=== PATIENT | male | born 1990 | race Caucasian/White ===

== ENCOUNTER 2024-07-14 16:01 | Inpatient (IN) | payer BC, SELFPAY ==
[2024-07-14] VITALS (21 sets, daily range): BP systolic 105–146; BP diastolic 65–96; PULSE 71–115; RESP 30–34; TEMP 36.5–37.4; O2SAT 87–97; BMI 33.2; BMI 32.4
--- NOTE | 2024-07-14 16:25 | ED.GENADULT ---
HPI - General Adult General Time Seen by Provider: 16:25 Date Seen: 07/14/24 Chief complaint: Shortness of Breath/Dyspnea Stated complaint: shortness of breath Time Seen by Provider: 07/14/24 16:04 Source: patient and RN notes reviewed Mode of arrival: ambulatory Limitations: no limitations History of Present Illness HPI narrative: This 34-year-old male is coming in accompanied by a relative with concern of shortness of breath and respiratory illness. He started with cough cold symptoms with primarily sore throat and cough about 2 weeks ago. He has kids at home that were sick as well. His cough is continued, in the last couple days seems to be worsening. He is feeling short of breath. Can cough up yellow sputum. He denies any fevers or chills at this point to me but in his triaged he was noting 2 weeks of cough, fever, body aches, shortness of breath, sweating, elevated heart rate and chest discomfort from coughing. His sleep is disrupted. He was in [facility] prior to coming here, got a DuoNeb reportedly for wheezing, had a negative chest x-ray. He had a home COVID test which was negative about a week ago. He does not have any history of lung problems like asthma. Related Data Allergies Allergy/AdvReac Type Severity Reaction Status Date / Time Penicillins Allergy Verified 07/14/24 17:12 Review of Systems Status of ROS: Reports: 6 or more systems reviewed and unremarkable except as noted in History and below [facility] Medical History (Updated 07/14/24 @ 18:54 by Alex Davis MD) Obesity (BMI 30.0-34.9) ?E66.811 - Obesity, class 1 (ICD-10) Surgical History (Updated 07/14/24 @ 18:46 by Alex Davis MD) History of tonsillectomy and adenoidectomy ?Z90.89 - Acquired absence of other organs (ICD-10) Family History (Updated 07/14/24 @ 18:46 by Alex Davis MD) Grandmother Diabetes Social History (Updated 07/14/24 @ 18:51 by Alex Davis MD) Narrative: He lives with his parents in [place]. He has children that he sees every other weekend. He does not smoke. He does not vape. He rarely drinks alcohol. His mother is healthcare power of insurance defense attorney. Code status is full. 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 What is your current living situation?: I presently have a place to live Problems where you live: no known problems Problems where you live details: none In the past 12 months, utilities in danger of being shut off: no In past 12 months, lack of transportation kept you from medical appts, meetings, work, or getting things needed for daily living: no In the past 12 mos, have been you worried that your food would run out before you had money to buy more?: never true In the past 12 mos, the food you bought just didn't last and you didn't have money to buy more?: never true Highest level of school completed/degree received: Associate degree: occupational, technical, vocational program Smoking Status: Never smoker Do you use any of these nicotine containing products: None Second hand tobacco smoke exposure: No How often do you have a drink containing alcohol: never How often do you have six or more drinks on one occasion: Never AUDIT-C Alcohol total score: 0 Non-prescribed substance use: denies use Caffeine: Yes (soda-1 daily) How often does anyone, including family, friends and others, physically hurt you: never How often does anyone, including family, friends and others, insult or talk down to you: never How often does anyone, including family, friends and others, threaten you with harm: never How often does anyone, including family, friends and others, scream or curse at you: never service: No Exam Const: Vital Signs, click to edit/add: Vital Signs - 24 hr 07/14/24 16:10 07/14/24 16:14 07/14/24 16:15 Temperature Pulse Rate 115 H 104 H 103 H Pulse Rate [Pulse Oximeter] Respiratory Rate Blood Pressure 131/76 Blood Pressure [Ri ght Upper Arm] Pulse Oximetry 91 89 89 Oxygen Delivery Me thod Oxygen Flow Rate 07/14/24 16:16 07/14/24 16:30 07/14/24 16:32 Temperature 99.4 F Pulse Rate 100 102 H Pulse Rate [Pulse Oximeter] 105 H Respiratory Rate 30 H Blood Pressure 146/92 H Blood Pressure [Ri ght Upper Arm] 131/76 Pulse Oximetry 90 92 91 Oxygen Delivery Me thod Room Air Oxygen Flow Rate 07/14/24 16:45 07/14/24 17:00 07/14/24 17:02 Temperature Pulse Rate 91 99 93 Pulse Rate [Pulse Oximeter] Respiratory Rate Blood Pressure 122/74 Blood Pressure [Ri ght Upper Arm] Pulse Oximetry 90 87 L 88 Oxygen Delivery Me thod Oxygen Flow Rate 07/14/24 17:03 07/14/24 17:22 07/14/24 17:30 Temperature Pulse Rate 92 99 98 Pulse Rate [Pulse Oximeter] Respiratory Rate Blood Pressure Blood Pressure [Ri ght Upper Arm] Pulse Oximetry 90 92 89 Oxygen Delivery Me thod Nasal Cannula Nasal Cannula Nasal Cannula Oxygen Flow Rate 2 2 2 07/14/24 17:32 07/14/24 17:45 07/14/24 18:00 Temperature Pulse Rate 105 H 94 92 Pulse Rate [Pulse Oximeter] Respiratory Rate Blood Pressure 131/96 H Blood Pressure [Ri ght Upper Arm] Pulse Oximetry 97 89 91 Oxygen Delivery Me thod OxyMask OxyMask OxyMask Oxygen Flow Rate 4 4 4 07/14/24 18:01 07/14/24 18:02 Temperature Pulse Rate 94 93 Pulse Rate [Pulse Oximeter] Respiratory Rate Blood Pressure 132/79 Blood Pressure [Ri ght Upper Arm] Pulse Oximetry 91 90 Oxygen Delivery Me thod OxyMask OxyMask Oxygen Flow Rate 4 4 Lee is a 34-year-old male seen in exam room 5, he is line on the bed, he looks mildly pale, is tachypneic, when he does speak there is no hoarseness. He looks like he does not feel well. Skin is warm and dry, no rash. Lungs actually are clear, no wheezing or crackles at this time. CV slightly fast but regular, no murmur. On arrival his sats were 89-91%. When I am in the room with him and he is resting, he is 90-91% with a good waveform, he is mildly tachypneic however. He has no lower extremity edema. Documenting provider has reviewed patient's vital signs: yes Course Course ED Course: Patient likely has complication of viral upper respiratory illness. This could be secondary bacterial pneumonia, could be underlying viral abnormality with viral pneumonia. He could becoming more ill with possible entities like bronchitis. Could be a complication viral illness like myocarditis but doubtful given his symptoms. He will be monitored on pulse oximetry, does not seem to need nebulization at this point. May need steroids, may need to consider antibiotics. Nursing staff did collect triple viral swab. Have reviewed with him that we are going to proceed with chest CT PE protocol, will rule out pulmonary emboli and will give us a very close look at the lung architecture. Will do full complement of labs. Reevaluation(s) Time of Reevaluation #1: 17:04 Reevaluation #1: Nursing staff did place patient on 2 L nasal cannula oxygen, patient did drop down to 86% on room air and was not bouncing back up. Time of Reevaluation #2: 17:49 Reevaluation #2: Reviewed with patient his CT is showing changes consistent with basically bronchitis. However given his white count, his hypoxia, I favor that he is actually community-acquired pneumonia clinically. I have ordered Rocephin and Z-Jonathan. He will need to come into the hospital. Nursing staff was in there switching him to an OxyMask when I came in, O2 sats were 89 % despite 4 L nasal cannula oxygen. With the OxyMask, is up to 92-93%. This patient is a never smoker, no history of pulmonary disease. His allergy to penicillin was when he was a little kid per his mom, maybe age 2 or 3, maybe a rash. Consultations Consultation #1: Have reviewed with the hospitalist Dr. Davis, he accepts this patient. Did review with him my question of initiating prednisone or not. This patient is not ICU at this time, no history of underlying pulmonary disease. I have not heard any wheezing here. With this in mind, he would prefer to just observe the patient and initiate antibiotics. With did call Dr. Davis back, let him know about the change to the OxyMask. Time: 17:44 Vital Signs Vital signs: Initial Vital Signs Pulse Rate 115 H 07/14/24 16:10 Pulse Oximetry 91 07/14/24 16:10 Vital Signs Pulse Rate 115 H 07/14/24 16:10 Pulse Oximetry 91 07/14/24 16:10 Temperature 98.4 F 07/14/24 18:48 Pulse Rate 89 07/14/24 18:48 Respiratory Rate 34 H 07/14/24 18:48 Blood Pressure 139/82 07/14/24 18:48 Pulse Oximetry 91 07/14/24 18:48 Oxygen Delivery Method OxyMask 07/14/24 18:48 Oxygen Flow Rate 4 07/14/24 18:48 Medications Administered Medications: Discontinued Medications Generic Name Dose Route Start Last Admin Trade Name Hawk PRN Reason Stop Dose Admin Azithromycin 500 mg 07/14/24 17:48 07/14/24 18:11 Azithromycin 250 Mg Tablet PO 07/14/24 17:49 500 mg ONCE ONE Administration Ceftriaxone Sodium 1 gm/ 100 mls @ 200 mls/hr 07/14/24 17:48 07/14/24 18:08 Sodium Chloride IVPB 07/14/24 17:49 200 mls/hr ONCE ONE Administration Medical Decision Making Lab Data Lab results reviewed: Yes I reviewed the patient's lab results Labs: Lab Results 07/14/24 07/14/24 Range/Units 16:33 16:50 WBC 19.07 H (4.50-11.00) K/uL RBC 5.18 (4.30-5.90) m/uL Hgb 15.2 (13.5-17.5) gm/dL Hct 44.1 (37.0-53.0) % MCV 85 (80-100) fL MCH 29 (26-34) pg MCHC 35 (32-36) gm/dL RDW Coeff of Jean 12.2 (11.5-15.5) % Plt Count 291 (140-440) K/uL Neut % (Auto) 84.0 H (42.0-72.0) % Lymph % (Auto) 9.8 L (20-44) % Wells % (Auto) 5.6 (0.0-11.0) % Eos % (Auto) 0.1 (0.0-7.0) % Baso % (Auto) 0.1 (0.0-3.0) % Neut # (Auto) 16.00 H (1.7-7.0) K/uL Lymph # (Auto) 1.90 (0.90-2.90) K/uL Wells # (Auto) 1.10 H (0.00-0.90) K/UL Eos # (Auto) 0.00 (0.00-0.50) K/uL Baso # (Auto) 0.00 (0.00-0.30) K/uL Abs Immat Gran (auto) 0.10 (0.00-0.30) K/uL Imm/Tot Granulo (auto) 0.4 % D-Dimer Quant (PE/DVT) 0.88 H (0.00-0.50) ug/ml VBG pH 7.433 H (7.32-7.43) VBG pCO2 38 L (40-50) mmHG VBG pO2 32.8 (25-47) mmHG VBG HCO3 25 (21-28) mmol/L Sodium 133 L (135-149) mmol/L Potassium 3.4 L (3.6-5.1) mmol/L Chloride 95 L (96-114) mmol/L Carbon Dioxide 24 (20-32) mmol/L Anion Gap 14 (7-15) mEq/L BUN 19 (5-24) mg/dL Creatinine 0.9 (0.5-1.5) mg/dL Estimated Creat Clear 114.56 Estimated GFR 114 ml/min Glucose 126 H (60-115) mg/dL Lactate 2.0 H (0.5-1.9) mmol/L Calcium 9.3 (8.4-10.6) mg/dL Total Bilirubin 1.5 (0.1-1.5) mg/dL AST 35 (12-35) U/L ALT 33 (4-50) U/L Alkaline Phosphatase 39 L (40-150) U/L Troponin I < 0.01 L (0.01-0.04) ng/mL C-Reactive Protein 15.2 H (0.5-1.0) mg/dL Total Protein 8.4 H (6.0-8.3) g/dL Albumin 4.5 (3.3-5.0) g/dL Lab Acknowledgement Test Added Imaging Data CT scan - chest: Attestation: I have reviewed the pertinent imaging results. Radiologist's impression: Patient: LEE GALLARDO Facility:?[facility] Patient ID:?[id number] Site Patient ID:?[id number]. Site :?[id number] Study:?CT-Chest Angio PE 95CC ISOVUE 370-07/14/2024 5:21:29 PM Ordering Physician:?Kirsten Arthur Final Report: INDICATION: Shortness of breath TECHNIQUE: CT chest with 95 mL Isovue 370 COMPARISON: None. FINDINGS: Lungs and pleura: Is diffuse bronchial wall thickening and diffuse centrilobular tree-in-bud opacities throughout the lungs. There are few more prominent pulmonary nodules seen example 6 millimeters subpleural right lower lobe nodule 5/112, 6 millimeter peripheral right lower lobe nodule on 5/108 Heart and vasculature: Heart size is normal. Thoracic aorta and pulmonary artery are normal in caliber. No pulmonary emboli. Lymph nodes/mediastinum: There is mild mediastinal hilar adenopathy present. Chest wall: No masses. Upper abdomen: Splenomegaly measuring 14.1 cm Bones: Unremarkable for age. IMPRESSION: 1. No pulmonary emboli. 2. Mild mediastinal hilar adenopathy could be reactive however lymphoproliferative process malignancy not excluded. There is also mild splenomegaly measuring 14.1 cm. Short interval follow-up recommended with repeat imaging in 3 months. 3. Diffuse bronchial wall thickening and centrilobular tree-in-bud opacities favor infectious bronchiolitis. Please note that all CT scans at this facility use dose modulation, iterative reconstruction, and/or weight-based dosing when appropriate to reduce radiation dose to as low as reasonably achievable. Dictated by Sarah Beth Knight MD @ 07/14/2024 5:40:09 PM (Electronic Signature) ECG Data Attestation: I personally reviewed and interpreted this ECG as follows: (Normal sinus rhythm, 94 beats per minute. No evidence of ischemia or infarct.) Prior ECG tracings: not available for review Discharge Plan Discharge Clinical Impression: Community acquired pneumonia, Hypoxia Patient Disposition: Admitted As Observation
--- NOTE | 2024-07-14 16:30 | CRLHL7_ITS ---
For Patients: As a result of the Century Cures Act, medical imaging exams and procedure reports are released immediately into your electronic medical record. You may view this report before your referring provider. If you have questions, please contact your health care provider. INDICATION: Shortness of breath TECHNIQUE: CT chest with 95 mL Isovue 370 COMPARISON: None. FINDINGS: Lungs and pleura: Is diffuse bronchial wall thickening and diffuse centrilobular tree-in-bud opacities throughout the lungs. There are few more prominent pulmonary nodules seen example 6 millimeters subpleural right lower lobe nodule /, 6 millimeter peripheral right lower lobe nodule on 108 Heart and vasculature: Heart size is normal. Thoracic aorta and pulmonary artery are normal in caliber. No pulmonary emboli. Lymph nodes/mediastinum: There is mild mediastinal hilar adenopathy present. Chest wall: No masses. Upper abdomen: Splenomegaly measuring 14.1 cm Bones: Unremarkable for age. IMPRESSION: 1. No pulmonary emboli. 2. Mild mediastinal hilar adenopathy could be reactive however lymphoproliferative process malignancy not excluded. There is also mild splenomegaly measuring 14.1 cm. Short interval follow-up recommended with repeat imaging in 3 months. 3. Diffuse bronchial wall thickening and centrilobular tree-in-bud opacities favor infectious bronchiolitis. Please note that all CT scans at this facility use dose modulation, iterative reconstruction, and/or weight-based dosing when appropriate to reduce radiation dose to as low as reasonably achievable. Dictated by Sarah Beth Knight MD @ 07/14/2024 5:40:09 PM (Electronically Signed)
[2024-07-14 16:56] LABS: PCR FLU A Negative PCR FLU A (Negative); PCR FLU B Negative PCR FLU B (Negative); PCR RSV Negative PCR RSV (Negative); SARS PCR* Negative SARS-CoV-2 (Negative)
[2024-07-14 16:56] LABS: Basophils Percent Auto 0.1 % (0.0-3.0); Eosinophils Percent Auto 0.1 % (0.0-7.0); Hematocrit 44.1 % (37.0-53.0); Hemoglobin* 15.2 gm/dL (13.5-17.5); Immature Granulocytes Pct Auto 0.4 %; Lymphocytes Percent Auto 9.8 % (20-44); Mean Corpuscular HGB Conc 35 gm/dL (32-36); Mean Corpuscular Hemoglobin 29 pg (26-34); Mean Corpuscular Volume 85 fL (80-100); Monocytes Percent Auto 5.6 % (0.0-11.0); Platelet Count* 291 K/uL (140-440); RDW Coefficient of Variation % 12.2 % (11.5-15.5); Red Blood Count 5.18 m/uL (4.30-5.90); White Blood Count* 19.07 K/uL (4.50-11.00)
[2024-07-14 17:00] LABS: Slide Review Reflex No
[2024-07-14 17:02] LABS: HCO3 VBG 25 mmol/L (21-28); PCO2 VBG 38 mmHG (40-50); PO2 VBG 32.8 mmHG (25-47); pH VBG 7.433 (7.32-7.43)
[2024-07-14 17:23] LABS: D Dimer Quantitative* 0.88 ug/ml (0.00-0.50)
[2024-07-14 17:36] LABS: Chloride* 95 mmol/L (96-114)
[2024-07-14 17:37] LABS: Albumin* 4.5 g/dL (3.3-5.0); Potassium* 3.4 mmol/L (3.6-5.1); Sodium* 133 mmol/L (135-149)
[2024-07-14 17:39] LABS: Anion Gap 14 mEq/L (7-15); Bilirubin Total* 1.5 mg/dL (0.1-1.5); Carbon Dioxide* 24 mmol/L (20-32); Creatinine* 0.9 mg/dL (0.5-1.5); Est. Creatinine Clearance* 114.56; Estimated Glomerular Filt Rate 114 ml/min; Total Protein* 8.4 g/dL (6.0-8.3)
[2024-07-14 17:40] LABS: Alanine Aminotransferase* 33 U/L (4-50); Alkaline Phosphatase* 39 U/L (40-150); Aspartate Amino Transferase* 35 U/L (12-35); Blood Urea Nitrogen* 19 mg/dL (5-24); Calcium* 9.3 mg/dL (8.4-10.6); Glucose* 126 mg/dL (60-115)
[2024-07-14 17:52] LABS: Troponin I* < 0.01 ng/mL (0.01-0.04)
[2024-07-14] MEDS: cefTRIAXone 1 GM in 0.9 % SODIUM CHLORIDE Mini-bag 100 ML IVPB (18:08)
[2024-07-14] MEDS: AZITHROMYCIN 250 MG TABLET 500 MG PO (18:11)
[2024-07-14 18:14] LABS: C Reactive Protein* 15.2 mg/dL (0.5-1.0)
--- NOTE | 2024-07-14 18:41 | P.IMHP_ITS ---
Hospitalist- H&P: HPI History of Present Illness Date Seen: 07/14/24 Chief complaint: shortness of breath Narrative: Scott Conway is a 34 year old male presenting with 10-12 day history of illness. Symptoms began with fever and sweats and cough. When his cough is severe he would have post-tussive vomiting. In the last few days he has been getting progressively short of breath. He has had fatigue and malaise. He reports a poor appetite with some nausea. He has been able to tolerate some food and fluids. He was seen in urgent care today where a chest x-ray was done which was unremarkable but due to his ill appearance he was referred to the emergency room. He reports no underlying pulmonary disease, asthma, COPD. He does not smoke or vape. He has not had any recent exposures. He does not live with his children but is with them every other weekend. They do have respiratory illness with cough. No other known exposures. He works for a [employer] company which he says can be a very opal environment and there can be a exposure to chemicals spills. About 6 years ago he did have a diagnosis of pneumonia. No other history of significant pulmonary disease. Review of Systems Narrative: Prior to the last 10-12 days he was feeling fine. Review of systems otherwise unremarkable except as noted above [facility] Medical History (Updated 07/14/24 @ 18:54 by Alex Davis MD) Obesity (BMI 30.0-34.9) ?E66.811 - Obesity, class 1 (ICD-10) Surgical History (Updated 07/14/24 @ 18:46 by Alex Davis MD) History of tonsillectomy and adenoidectomy ?Z90.89 - Acquired absence of other organs (ICD-10) Family History (Updated 07/14/24 @ 18:46 by Alex Davis MD) Grandmother Diabetes Social History (Updated 07/14/24 @ 18:51 by Alex Davis MD) Narrative: He lives with his parents in [place]. He has children that he sees every other weekend. He does not smoke. He does not vape. He rarely drinks alcohol. His mother is healthcare power of defense attorney. Code status is full. 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 Has been taking [id number] cold remedies recently Allergies Allergy/AdvReac Type Severity Reaction Status Date / Time Penicillins Allergy Verified 07/14/24 17:12 Allergies/Adverse Reaction Comments: Penicillin caused a rash when he was a young child according to his mother. Exam Narrative: Exam Narrative: He is alert and appears in no distress. He is breathing oxygen at 3.5 L via OxyMask. He gives his own history. Eyes are normal. Oropharynx with small airway and dry mucous membranes. Neck is supple without mass or adenopathy. No stridor. Respirations are clear to auscultation. No wheezing rales or rhonchi. Fairly good air exchange in all lung sellers. Cardiovascular: S1, S2, regular rate and rhythm. No murmur gallop or rub. Abdomen: Bowel sounds active. Abdomen is soft without tenderness or mass. Extremities with no edema, good peripheral pulses, no clubbing, no cyanosis. Good capillary refill Const: Vital Signs, click to edit/add: Vital Signs - 24 hr 07/14/24 16:10 07/14/24 16:14 07/14/24 16:15 Temperature Pulse Rate 115 H 104 H 103 H Pulse Rate [Pulse Oximeter] Respiratory Rate Blood Pressure 131/76 Blood Pressure [Ri ght Upper Arm] Pulse Oximetry 91 89 89 Oxygen Delivery Me thod Oxygen Flow Rate 07/14/24 16:16 07/14/24 16:30 07/14/24 16:32 Temperature 99.4 F Pulse Rate 100 102 H Pulse Rate [Pulse Oximeter] 105 H Respiratory Rate 30 H Blood Pressure 146/92 H Blood Pressure [Ri ght Upper Arm] 131/76 Pulse Oximetry 90 92 91 Oxygen Delivery Me thod Room Air Oxygen Flow Rate 07/14/24 16:45 07/14/24 17:00 07/14/24 17:02 Temperature Pulse Rate 91 99 93 Pulse Rate [Pulse Oximeter] Respiratory Rate Blood Pressure 122/74 Blood Pressure [Ri ght Upper Arm] Pulse Oximetry 90 87 L 88 Oxygen Delivery Me thod Oxygen Flow Rate 07/14/24 17:03 07/14/24 17:22 07/14/24 17:30 Temperature Pulse Rate 92 99 98 Pulse Rate [Pulse Oximeter] Respiratory Rate Blood Pressure Blood Pressure [Ri ght Upper Arm] Pulse Oximetry 90 92 89 Oxygen Delivery Me thod Nasal Cannula Nasal Cannula Nasal Cannula Oxygen Flow Rate 2 2 2 07/14/24 17:32 07/14/24 17:45 07/14/24 18:00 Temperature Pulse Rate 105 H 94 92 Pulse Rate [Pulse Oximeter] Respiratory Rate Blood Pressure 131/96 H Blood Pressure [Ri ght Upper Arm] Pulse Oximetry 97 89 91 Oxygen Delivery Me thod OxyMask OxyMask OxyMask Oxygen Flow Rate 4 4 4 07/14/24 18:01 07/14/24 18:02 Temperature Pulse Rate 94 93 Pulse Rate [Pulse Oximeter] Respiratory Rate Blood Pressure 132/79 Blood Pressure [Ri ght Upper Arm] Pulse Oximetry 91 90 Oxygen Delivery Me thod OxyMask OxyMask Oxygen Flow Rate 4 4 Documenting provider has reviewed patient's vital signs: yes Hospitalist - H&P: Result Labs Labs: Short CBC 07/14/24 Range/Units 16:50 WBC 19.07 H (4.50-11.00) K/uL Hgb 15.2 (13.5-17.5) gm/dL Hct 44.1 (37.0-53.0) % Plt Count 291 (140-440) K/uL BMP 07/14/24 16:50 Sodium 133 L Potassium 3.4 L Chloride 95 L Carbon Dioxide 24 BUN 19 Creatinine 0.9 Glucose 126 H Calcium 9.3 Cardiac Enzymes 07/14/24 Range/Units 16:50 Troponin I < 0.01 L (0.01-0.04) ng/mL Liver Function 07/14/24 Range/Units 16:50 Total Bilirubin 1.5 (0.1-1.5) mg/dL AST 35 (12-35) U/L ALT 33 (4-50) U/L Alkaline Phosphatase 39 L (40-150) U/L Albumin 4.5 (3.3-5.0) g/dL Imaging CT scan - chest: Radiologist's impression: INDICATION: Shortness of breath TECHNIQUE: CT chest with 95 mL Isovue 370 COMPARISON: None. FINDINGS: Lungs and pleura: Is diffuse bronchial wall thickening and diffuse centrilobular tree-in-bud opacities throughout the lungs. There are few more prominent pulmonary nodules seen example 6 millimeters subpleural right lower lobe nodule 5/112, 6 millimeter peripheral right lower lobe nodule on 5/108 Heart and vasculature: Heart size is normal. Thoracic aorta and pulmonary artery are normal in caliber. No pulmonary emboli. Lymph nodes/mediastinum: There is mild mediastinal hilar adenopathy present. Chest wall: No masses. Upper abdomen: Splenomegaly measuring 14.1 cm Bones: Unremarkable for age. IMPRESSION: 1. No pulmonary emboli. 2. Mild mediastinal hilar adenopathy could be reactive however lymphoproliferative process malignancy not excluded. There is also mild splenomegaly measuring 14.1 cm. Short interval follow-up recommended with repeat imaging in 3 months. 3. Diffuse bronchial wall thickening and centrilobular tree-in-bud opacities favor infectious bronchiolitis. Assessment and Plan Assessment and plan (1) Hypoxia: Problem comment: Hypoxic respiratory failure likely due to infectious process/bronchiolitis. Due to moderately severe disease will treat as community-acquired pneumonia with antibiotics, ceftriaxone and Zithromax. Status: Acute (2) Acute bronchiolitis due to other infectious organisms: Problem comment: Moderately ill with hypoxia and other constitutional symptoms. Treat as community-acquired pneumonia. Status: Acute (3) Mediastinal lymphadenopathy: Problem comment: Probably due to current illness. Recommend repeat CT in 3 months Status: Acute (4) Splenomegaly: Problem comment: Probably due to current illness. Recommend repeat CT in 3 months Status: Acute Plan Patient admitted to the hospital for hypoxic respiratory failure, tachypnea, tachycardia due to likely respiratory infection. CT shows bronchiolitis without definite pneumonia or PE He will be treated as possible community-acquired pneumonia. IV antibiotics and supplemental oxygen and respiratory monitoring. Total Time Spent Total Time Spent: 60 minutes spent in reviewing records, evaluating patient and discussing with patient, his mother and other providers ongoing plan of care.
--- NOTE | 2024-07-14 19:36 | PC.NURSE ---
shift note: pt up sba to bathroom. gait shaky/unsteady. Pt states he has slight LAMB. RR 34/min with increased sob due to transfer to bathroom. oxymask increased to 4.5L O2. LS clr. IV patent. VSS stable. Parents at bedside.
[2024-07-14] MEDS: SODIUM CHLORIDE 0.9 % (FLUSH) 10 ML SYRINGE 5 ML IVF (21:02)
[2024-07-15] VITALS (8 sets, daily range): BP systolic 114–129; BP diastolic 74–84; PULSE 73–83; RESP 27–30; TEMP 36.3–36.9; O2SAT 90–93
--- NOTE | 2024-07-15 06:15 | PC.NURSE ---
Pt alert, oriented and vitally stable. Pt SPO2 does occasionally dip to the 88-89 range, MD aware (Dr. Davis) and stated this was acceptable. Pt lung sounds are crackled throughout the bases but clear in the upper lobes bilaterally. Pt does have a productive cough, clear sputum per pt. Pt has oxymask at 4.5 L and is tolerating well. IV in right AC, patent. Pt appears to be resting throughout shift, call light in reach.
[2024-07-15 06:25] LABS: HCO3 VBG 28 mmol/L (21-28); PCO2 VBG 42 mmHG (40-50); PO2 VBG 39.5 mmHG (25-47); pH VBG 7.429 (7.32-7.43)
[2024-07-15 06:27] LABS: Basophils Percent Auto 0.2 % (0.0-3.0); Eosinophils Percent Auto 0.5 % (0.0-7.0); Hematocrit 34.4 % (37.0-53.0); Hemoglobin* 14.5 gm/dL (13.5-17.5); Immature Granulocytes Pct Auto 1.8 %; Mean Corpuscular HGB Conc 42 gm/dL (32-36); Mean Corpuscular Hemoglobin 39 pg (26-34); Mean Corpuscular Volume 92 fL (80-100); Monocytes Percent Auto 6.5 % (0.0-11.0); Platelet Count* 263 K/uL (140-440); RDW Coefficient of Variation % 14.9 % (11.5-15.5); Red Blood Count 3.76 m/uL (4.30-5.90); White Blood Count* 17.04 K/uL (4.50-11.00)
[2024-07-15 06:28] LABS: Slide Review Reflex No
[2024-07-15 06:42] LABS: Chloride* 97 mmol/L (96-114); Sodium* 135 mmol/L (135-149)
[2024-07-15 06:43] LABS: Potassium* 3.8 mmol/L (3.6-5.1)
[2024-07-15 06:45] LABS: Creatinine* 0.7 mg/dL (0.5-1.5); Est. Creatinine Clearance* 147.29; Estimated Glomerular Filt Rate 123 ml/min
[2024-07-15 06:46] LABS: Anion Gap 11 mEq/L (7-15); Blood Urea Nitrogen* 17 mg/dL (5-24); Calcium* 9.1 mg/dL (8.4-10.6); Carbon Dioxide* 27 mmol/L (20-32); Glucose* 109 mg/dL (60-115)
[2024-07-15 07:04] LABS: C Reactive Protein* 15.7 mg/dL (0.5-1.0)
[2024-07-15 07:26] LABS: Legionella pneumo Ag Urine L. pneumo Negative (Negative); S pneumo Ag Urine S. pneumo Negative (Negative)
[2024-07-15 07:47] LABS: Lactate* 1.6 mmol/L (0.5-1.9)
--- NOTE | 2024-07-15 11:05 | RESP.RT ---
Pt seen this AM, on 2L NC. In bed. Seems very tired. BBS basically clear, light crackles in LLL that clear with coughing. Pt reports coughing is productive at times. Multiple dry spontaneous coughing while I was in the room. Spoke to pt about the need to cough during the day, and could have a suppressant at night to sleep. Enocuraged sitting in chair, and some walking in the room today. Continue to wean oxygen, and work with IS. Aerobika not indicated for this patient, who has frequent strong productive cough.
--- NOTE | 2024-07-15 11:16 | P.IMPN_ITS ---
Progress Note: A&P Assessment and plan (1) Hypoxia: Problem details: Hypoxic respiratory failure likely due to infectious process/bronchiolitis. Due to moderately severe disease will treat as community-acquired pneumonia with antibiotics, ceftriaxone and Zithromax. - tx: as below Status: Acute (2) Acute bronchiolitis due to other infectious organisms: Problem details: - Moderately ill with hypoxia and other constitutional symptoms. Treat as community-acquired pneumonia. - 07/15 Oxygen needs remain 4-4.5L/min Oxymask overnight. + dry cough. No wheezing (will hold off on steroids) WBC improving. Will ask RT to see. Obtain sputum culture. MRSA screen pending. Up to chair and ambulate as tolerated in room. Continue azithromycin and ceftriaxone. If patient worsens, extend coverage to Zosyn and vancomycin. Status: Acute (3) Mediastinal lymphadenopathy: Problem details: Probably due to current illness. Recommend repeat CT in 3 months Status: Acute (4) Splenomegaly: Problem details: Probably due to current illness. Recommend repeat CT in 3 months Status: Acute Plan VTE prophylaxis: Low-dose nightly enoxaparin and SCDs. Subjective Time Seen by Provider: 08:00 Date Seen: 07/15/24 Interval history: Scott is feeling a little better today; slightly less SOB. Denies pain or CP. RR rate remains elevated. He complains of of a cough which is sometimes productive, but mostly dry. He had 2 weeks of symptoms and fevers during the 1st few days of this illness. He denies any rashes. 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 He denies any travel or outdoor activities such as hiking or hunting. He had a pneumonia that was similar that lasted about a week, but he was not hospitalized for it, about 6 years ago. No family history of pneumonia as a young adult or lung problems. He lives with his parents and shares custody of his kids who are supposed to come visit him this coming weekend. Exam Narrative: Exam Narrative: General: No acute distress. Mildly tachypneic, but comfortable and able to talk in complete sentences. Still in bed with OxyMask mask on. Awake, alert, oriented x3. No pallor. No jaundice. Oropharynx: Clear. Mucous membranes moist. Cardiovascular: Regular rate and rhythm. No murmurs, gallops, or rubs. Respiratory: Mildly tachypneic id Clear to auscultation bilaterally. No wheezes or crackles. Abdomen: Bowel sounds present. Soft, nondistended, nontender. Extremities: No pedal edema. Const: Vital Signs, click to edit/add: Vital Signs - 24 hr 07/14/24 16:10 07/14/24 16:14 07/14/24 16:15 Temperature Pulse Rate 115 H 104 H 103 H Pulse Rate [Pulse Oximeter] Pulse Rate [Right Brachial] Respiratory Rate Blood Pressure 131/76 Blood Pressure [Ri ght Arm] Blood Pressure [Ri ght Upper Arm] Pulse Oximetry 91 89 89 Oxygen Delivery Me thod Oxygen Flow Rate Fraction of Inspir ed Oxygen 07/14/24 16:16 07/14/24 16:30 07/14/24 16:32 Temperature 99.4 F Pulse Rate 100 102 H Pulse Rate [Pulse Oximeter] 105 H Pulse Rate [Right Brachial] Respiratory Rate 30 H Blood Pressure 146/92 H Blood Pressure [Ri ght Arm] Blood Pressure [Ri ght Upper Arm] 131/76 Pulse Oximetry 90 92 91 Oxygen Delivery Me thod Room Air Oxygen Flow Rate Fraction of Inspir ed Oxygen 07/14/24 16:45 07/14/24 17:00 07/14/24 17:02 Temperature Pulse Rate 91 99 93 Pulse Rate [Pulse Oximeter] Pulse Rate [Right Brachial] Respiratory Rate Blood Pressure 122/74 Blood Pressure [Ri ght Arm] Blood Pressure [Ri ght Upper Arm] Pulse Oximetry 90 87 L 88 Oxygen Delivery Me thod Oxygen Flow Rate Fraction of Inspir ed Oxygen 07/14/24 17:03 07/14/24 17:22 07/14/24 17:30 Temperature Pulse Rate 92 99 98 Pulse Rate [Pulse Oximeter] Pulse Rate [Right Brachial] Respiratory Rate Blood Pressure Blood Pressure [Ri ght Arm] Blood Pressure [Ri ght Upper Arm] Pulse Oximetry 90 92 89 Oxygen Delivery Me thod Nasal Cannula Nasal Cannula Nasal Cannula Oxygen Flow Rate 2 2 2 Fraction of Inspir ed Oxygen 07/14/24 17:32 07/14/24 17:45 07/14/24 18:00 Temperature Pulse Rate 105 H 94 92 Pulse Rate [Pulse Oximeter] Pulse Rate [Right Brachial] Respiratory Rate Blood Pressure 131/96 H Blood Pressure [Ri ght Arm] Blood Pressure [Ri ght Upper Arm] Pulse Oximetry 97 89 91 Oxygen Delivery Me thod OxyMask OxyMask OxyMask Oxygen Flow Rate 4 4 4 Fraction of Inspir ed Oxygen 07/14/24 18:01 07/14/24 18:02 07/14/24 18:48 Temperature 98.4 F Pulse Rate 94 93 Pulse Rate [Pulse Oximeter] Pulse Rate [Right Brachial] 89 Respiratory Rate 34 H Blood Pressure 132/79 Blood Pressure [Ri ght Arm] 139/82 Blood Pressure [Ri ght Upper Arm] Pulse Oximetry 91 90 91 Oxygen Delivery Me thod OxyMask OxyMask OxyMask Oxygen Flow Rate 4 4 4 Fraction of Inspir ed Oxygen 07/14/24 18:48 07/14/24 19:00 07/14/24 21:11 Temperature 98.1 F Pulse Rate 73 Pulse Rate [Pulse Oximeter] 82 Pulse Rate [Right Brachial] Respiratory Rate 34 H 30 H Blood Pressure Blood Pressure [Ri ght Arm] 105/68 Blood Pressure [Ri ght Upper Arm] Pulse Oximetry 91 94 Oxygen Delivery Me thod OxyMask Room Air Oxygen Flow Rate 4 Fraction of Inspir ed Oxygen 07/14/24 23:00 07/14/24 23:00 07/14/24 23:00 Temperature 97.7 F Pulse Rate Pulse Rate [Pulse Oximeter] 82 76 Pulse Rate [Right Brachial] Respiratory Rate 30 H 30 H 30 H Blood Pressure Blood Pressure [Ri ght Arm] 115/65 Blood Pressure [Ri ght Upper Arm] Pulse Oximetry 94 90 Oxygen Delivery Me thod OxyMask OxyMask Oxygen Flow Rate 4 4 Fraction of Inspir ed Oxygen 07/14/24 23:00 07/15/24 03:00 07/15/24 07:00 Temperature 97.6 F Pulse Rate 71 80 Pulse Rate [Pulse Oximeter] 82 Pulse Rate [Right Brachial] Respiratory Rate 28 H Blood Pressure Blood Pressure [Ri ght Arm] 115/74 Blood Pressure [Ri ght Upper Arm] Pulse Oximetry 91 Oxygen Delivery Me thod OxyMask Oxygen Flow Rate 4 Fraction of Inspir ed Oxygen 07/15/24 07:59 07/15/24 07:59 07/15/24 07:59 Temperature 97.3 F L Pulse Rate Pulse Rate [Pulse Oximeter] 82 83 Pulse Rate [Right Brachial] Respiratory Rate 30 H 30 H Blood Pressure Blood Pressure [Ri ght Arm] 125/81 Blood Pressure [Ri ght Upper Arm] Pulse Oximetry 93 93 Oxygen Delivery Me thod OxyMask Room Air Oxygen Flow Rate 4.5 4.5 Fraction of Inspir ed Oxygen 30 Documenting provider has reviewed patient's vital signs: yes Labs Labs: Laboratory Results - last 24 hr 07/14/24 07/14/24 07/14/24 07:02 16:33 16:50 WBC 19.07 H RBC 5.18 Hgb 15.2 Hct 44.1 MCV 85 MCH 29 MCHC 35 RDW Coeff of Jean 12.2 Plt Count 291 Neut % (Auto) 84.0 H Lymph % (Auto) 9.8 L Gaines % (Auto) 5.6 Eos % (Auto) 0.1 Baso % (Auto) 0.1 Neut # (Auto) 16.00 H Lymph # (Auto) 1.90 Gaines # (Auto) 1.10 H Eos # (Auto) 0.00 Baso # (Auto) 0.00 Abs Immat Gran (auto) 0.10 Imm/Tot Granulo (auto) 0.4 D-Dimer Quant (PE/DVT) 0.88 H VBG pH 7.433 H VBG pCO2 38 L VBG pO2 32.8 VBG HCO3 25 Sodium 133 L Potassium 3.4 L Chloride 95 L Carbon Dioxide 24 Anion Gap 14 BUN 19 Creatinine 0.9 Estimated Creat Clear 114.56 Estimated GFR 114 Glucose 126 H Lactate 2.0 H Calcium 9.3 Total Bilirubin 1.5 AST 35 ALT 33 Alkaline Phosphatase 39 L Troponin I < 0.01 L C-Reactive Protein 15.2 H Total Protein 8.4 H Albumin 4.5 Urine L. pneumophilia Ag L. pneumo Negative Urine Strep pneumoniae Ag S. pneumo Negative SARS-CoV-2 (PCR) Influenza Type A (PCR) Influenza Type B (PCR) RSV (PCR) Lab Acknowledgement Test Added 07/14/24 07/15/24 Unknown 06:19 WBC 17.04 H RBC 3.76 L Hgb 14.5 Hct 34.4 L MCV 92 MCH 39 H MCHC 42 H RDW Coeff of Jean 14.9 Plt Count 263 Neut % (Auto) 78.0 H Lymph % (Auto) 13.0 L Gaines % (Auto) 6.5 Eos % (Auto) 0.5 Baso % (Auto) 0.2 Neut # (Auto) 13.30 H Lymph # (Auto) 2.20 Gaines # (Auto) 1.10 H Eos # (Auto) 0.10 Baso # (Auto) 0.00 Abs Immat Gran (auto) 0.30 Imm/Tot Granulo (auto) 1.8 D-Dimer Quant (PE/DVT) VBG pH 7.429 VBG pCO2 42 VBG pO2 39.5 VBG HCO3 28 Sodium 135 Potassium 3.8 Chloride 97 Carbon Dioxide 27 Anion Gap 11 BUN 17 Creatinine 0.7 Estimated Creat Clear 147.29 Estimated GFR 123 Glucose 109 Lactate 1.6 Calcium 9.1 Total Bilirubin AST ALT Alkaline Phosphatase Troponin I C-Reactive Protein 15.7 H Total Protein Albumin Urine L. pneumophilia Ag Urine Strep pneumoniae Ag SARS-CoV-2 (PCR) Negative SARS-CoV-2 Influenza Type A (PCR) Negative PCR FLU A Influenza Type B (PCR) Negative PCR FLU B RSV (PCR) Negative PCR RSV Lab Acknowledgement
--- NOTE | 2024-07-15 17:59 | PC.NURSE ---
Nursing Care Hours: [id number] Pt this shift calm and cooperative, alert and oriented. Titrate supplemental O2 from 4.5L OxyMask to 2L NC, tolerating well. Frequent intermittent coughing. Pt reports yellow thick sputum. collected for lab but appears clear and semi thick. LS clear. Tachypneic at rest and SOB with activity. Tachycardia with activity. No c/o pain. Up in chairs for meals. IS being used independently. Gown and bed changes d/t clamminess. Eating small amounts of meals.
[2024-07-15] MEDS: AZITHROMYCIN 250 MG TABLET 500 MG PO (18:01)
[2024-07-15] MEDS: cefTRIAXone 1 GM in 0.9 % SODIUM CHLORIDE Mini-bag 100 ML IVPB (18:01)
[2024-07-15] MEDS: SODIUM CHLORIDE 0.9 % (FLUSH) 10 ML SYRINGE 5 ML IVF ×2 (18:01→20:54)
[2024-07-15] MEDS: guaiFENesin 100 MG/ML CUP PO (21:00)
[2024-07-16] MEDS: guaiFENesin 100 MG/ML CUP PO (00:39)
[2024-07-16 03:00] VITALS: BP 114/78; PULSE 75; RESP 28; TEMP 36.8; O2SAT 92
--- NOTE | 2024-07-16 06:49 | PC.NURSE ---
Shift note ([id number]): Patient pleasant, alert and oriented. Ambulating independently in room. PRN Guaifenesin given for cough x 2. O2 sats 87% on 2 LPM via NC overnight. O2 increased. O2 sats 88-92% on 3 LPM via NC. Denies SOB.?
[2024-07-16 07:00] VITALS: BP 131/86; PULSE 79; PULSE 87; RESP 28; TEMP 36.2; O2SAT 92
[2024-07-16 09:40] VITALS: O2SAT 91
--- NOTE | 2024-07-16 10:52 | PM.DS1 ---
DS: Providers Provider Time Seen by Provider: 08:25 Date Seen: 07/16/24 Date of admission: 07/14/24 18:35 Primary care physician: Not a Local Provider Admitting Clinician: Alex Davis MD Consults: 07/14/24 18:37 Consult to Respiratory Therapy [CONS] Routine Comment: Reason(s) for RT Consult:: Consult Attending Physician on discharge: Elida Bartlett MD DS: Diagnosis Discharge Diagnosis (1) Acute hypoxic respiratory failure: Status: Acute Problem details: - Hypoxic respiratory failure likely due to infectious process/bronchiolitis. Due to moderately severe disease treated as community-acquired pneumonia with antibiotics, ceftriaxone and Zithromax. (2) Acute bronchiolitis due to other infectious organisms: Status: Acute Problem details: - Moderately ill with hypoxia and other constitutional symptoms upon admission. Treated as community-acquired pneumonia. - 07/15 Oxygen needs remain 4-4.5L/min Oxymask overnight. + dry cough. No wheezing (will hold off on steroids) WBC improving. Will ask RT to see. Obtain sputum culture. MRSA screen pending. Up to chair and ambulate as tolerated in room. Continue azithromycin and ceftriaxone. If patient worsens, extend coverage to Zosyn and vancomycin. - 07/16 Off oxygen at rest and with activity (RT walked him in the hallway). Tachypnea improving. Feeling much better. Strongly desires homegoing. Transition to oral antibiotics. (3) Mediastinal lymphadenopathy: Status: Acute Problem details: Probably due to current illness. Recommend repeat CT in 3 months (4) Splenomegaly: Status: Acute Problem details: Probably due to current illness. Recommend repeat CT in 3 months DS: Summary Hospital Course Hospital Course: Per H&P: Scott Conway is a 34 year old male presenting with 10-12 day history of illness. Symptoms began with fever and sweats and cough. When his cough is severe he would have post-tussive vomiting. In the last few days he has been getting progressively short of breath. He has had fatigue and malaise. He reports a poor appetite with some nausea. He has been able to tolerate some food and fluids. He was seen in urgent care today where a chest x-ray was done which was unremarkable but due to his ill appearance he was referred to the emergency room. He reports no underlying pulmonary disease, asthma, COPD. He does not smoke or vape. He has not had any recent exposures. He does not live with his children but is with them every other weekend. They do have respiratory illness with cough. No other known exposures. He works for a [employer] company which he says can be a very opal environment and there can be a exposure to chemicals spills. About 6 years ago he did have a diagnosis of pneumonia. No other history of significant pulmonary disease. Started on IV ceftriaxone and oral azithromycin. Good improvement over the next two hospital days. Now weaned off O2. O2 sats 90% on RA at rest and with ambulation. D/c home on oral antibiotics. 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 He prefers to go to a clinic in [place]. Time Spent with Patient Time attestation: Total time spent providing and/or coordinating discharge services: Exam Narrative: Exam Narrative: General: No acute distress. Sitting in the chair off oxygen, comfortable, able to talk in complete sentences. Awake, alert, oriented x3. No pallor. No jaundice. Oropharynx: Clear. Mucous membranes moist. Cardiovascular: Regular rate and rhythm. No murmurs, gallops, or rubs. Respiratory: Clear to auscultation bilaterally. No wheezes or crackles. Abdomen: Bowel sounds present. Soft, nondistended, nontender. Extremities: No pedal edema. Const: Vital Signs, click to edit/add: Vital Signs - 24 hr 07/15/24 11:00 07/15/24 15:00 07/15/24 15:00 Temperature 97.9 F 98.5 F Pulse Rate Pulse Rate [Pulse Oximeter] 81 73 Respiratory Rate 30 H 28 H 28 H Blood Pressure [Le ft Arm] 129/76 Blood Pressure [Ri ght Arm] 129/81 Pulse Oximetry 90 90 92 Oxygen Delivery Me thod Nasal Cannula Nasal Cannula Nasal Cannula Oxygen Flow Rate 2 2 2 07/15/24 19:00 07/15/24 23:00 07/15/24 23:00 Temperature 98.2 F Pulse Rate Pulse Rate [Pulse Oximeter] 73 Respiratory Rate 28 H 28 H Blood Pressure [Le ft Arm] 118/84 Blood Pressure [Ri ght Arm] Pulse Oximetry 91 92 Oxygen Delivery Me thod Nasal Cannula Nasal Cannula Oxygen Flow Rate 2 2 07/15/24 23:00 07/15/24 23:00 07/16/24 03:00 Temperature 97.4 F L 98.3 F Pulse Rate 81 Pulse Rate [Pulse Oximeter] 79 75 Respiratory Rate 27 H 28 H Blood Pressure [Le ft Arm] 114/78 114/78 Blood Pressure [Ri ght Arm] Pulse Oximetry 92 92 Oxygen Delivery Me thod Nasal Cannula Nasal Cannula Oxygen Flow Rate 2 3 07/16/24 07:00 07/16/24 07:00 07/16/24 07:00 Temperature 97.1 F L Pulse Rate 79 Pulse Rate [Pulse Oximeter] 87 Respiratory Rate 28 H 28 H Blood Pressure [Le ft Arm] Blood Pressure [Ri ght Arm] 131/86 Pulse Oximetry 92 92 Oxygen Delivery Me thod Nasal Cannula Nasal Cannula Oxygen Flow Rate 3 3 07/16/24 09:39 07/16/24 09:40 07/16/24 09:42 Temperature Pulse Rate Pulse Rate [Pulse Oximeter] Respiratory Rate Blood Pressure [Le ft Arm] Blood Pressure [Ri ght Arm] Pulse Oximetry 91 Oxygen Delivery Me thod Nasal Cannula Nasal Cannula Oxygen Flow Rate 2 2 Documenting provider has reviewed patient's vital signs: yes DS: Data Data Completed and Pending Completed studies during hospitalization: 07/14/2024 EKG: Normal sinus rhythm, 94 beats per minute, rightward axis. Ordering Physician: Sandhya Curtis M.D. Date of Service: 07/14/24 Procedure(s): CT angio chest PE protocol Accession Number(s): [id number] cc: Provider,Not a Local; Sandhya Curtis M.D.~ For Patients: As a result of the Cures Act, medical imaging exams and procedure reports are released immediately into your electronic medical record. You may view this report before your referring provider. If you have questions, please contact your health care provider. INDICATION: Shortness of breath TECHNIQUE: CT chest with 95 mL Isovue 370 COMPARISON: None. FINDINGS: Lungs and pleura: Is diffuse bronchial wall thickening and diffuse centrilobular tree-in-bud opacities throughout the lungs. There are few more prominent pulmonary nodules seen example 6 millimeters subpleural right lower lobe nodule 5/112, 6 millimeter peripheral right lower lobe nodule on Heart and vasculature: Heart size is normal. Thoracic aorta and pulmonary artery are normal in caliber. No pulmonary emboli. Lymph nodes/mediastinum: There is mild mediastinal hilar adenopathy present. Chest wall: No masses. Upper abdomen: Splenomegaly measuring 14.1 cm Bones: Unremarkable for age. IMPRESSION: 1. No pulmonary emboli. 2. Mild mediastinal hilar adenopathy could be reactive however lymphoproliferative process malignancy not excluded. There is also mild splenomegaly measuring 14.1 cm. Short interval follow-up recommended with repeat imaging in 3 months. 3. Diffuse bronchial wall thickening and centrilobular tree-in-bud opacities favor infectious bronchiolitis. Please note that all CT scans at this facility use dose modulation, iterative reconstruction, and/or weight-based dosing when appropriate to reduce radiation dose to as low as reasonably achievable. Dictated by Sarah Beth Knight MD @ 07/14/2024 5:40:09 PM (Electronically Signed) Labs on day of discharge: Preliminary micro results at discharge 07/15/24 11:45 Sputum Culture - Preliminary Sputum - Expectorated Sputum Culture in Progress Discharge Plan Discharge Disposition: Home, Self-Care Date of Admission: 07/14/24 18:35 Attending Provider on Discharge: Elida Bartlett Discharge Medications: New azithromycin 250 mg Tablet 500 mg PO Q24H 1 Days Qty: 2 0RF Taper: Z-BEN 500 mg Q24H for 1 Day and 0 Hour 250 mg Q24H for 4 Days and 0 Hour Rx Instructions: Start 07/17/24 am. cefdinir 300 mg capsule 300 mg PO BID 7 Days Qty: 14 0RF Discharge Orders: Discharge Order (Routine); Ordered 07/16/24 Ordered By: Elida Bartlett Activity Level: Activity as Tolerated Discharge Diet: Regular Follow Up Appointments: Provider,Not a Local [Primary Care Provider] - David Bosch MD [Referring] - 07/18/24 11:20 am ([facility] for postop visit.) Forms: Work/School Release, A la Mobile Info Instructions
[2024-07-16 11:00] VITALS: BP 124/79; PULSE 79; RESP 24; TEMP 36.5; O2SAT 91
[2024-07-16 11:02] VITALS: O2SAT 90
--- NOTE | 2024-07-16 11:04 | RESP.RT ---
Patient seen today by Respiratory Therapy. Patient walked for a length of time on room air. Lowest SpO2 on room air was 91%. Highest heart rate 103. Shortness of breathing was minimal per patient. Results reported to RN and MD.
[2024-07-16 11:48] VITALS: O2SAT 91
[2024-07-16] MEDS: AZITHROMYCIN 250 MG TABLET 500 MG PO (12:20)
--- NOTE | 2024-07-16 12:32 | PC.NURSE ---
Pt discharged @ 1222 via wheelchair, accompanied by father. Back to home. Discharge forms reviewed and signed. Belongings sheet signed. Pt AxOx4 with no pain/nausea present. Pt was given Azithromycin early due to medication not beginning until 07/17/2024.
== END 2024-07-16 12:22 | disposition home or self-care (01) | DRG 133 ==
LOC: ED 18:05 → MEDSURG 19:10
PROVIDERS: Admitting Provider Family Medicine; Emergency Provider Family Medicine; Visit Provider Family Medicine
DX: J96.01 Acute respiratory failure with hypoxia (principal); J21.8 Acute bronchiolitis due to other specified organisms; R59.0 Localized enlarged lymph nodes; R16.1 Splenomegaly, not elsewhere classified
CPT/HCPCS: 36415; 71275; 80048; 80053; 82803; 83605; 84484; 85025; 85379; 86140; 87070; 87081; 87449; 87631; 87899; 93005; 94761; 99284; 99285; A9270; J0696; Q9967